=== PATIENT | male | born 2000 | race Caucasian/White ===

== ENCOUNTER 2020-01-14 01:17 | Emergency (ER) | payer OTHER, SELFPAY ==
[2020-01-14 01:19] VITALS: BP 158/109; PULSE 122; RESP 18; TEMP 36.6; O2SAT 99; BMI 31.1
--- NOTE | 2020-01-14 01:21 | ED.RN ---
NO OLD EKGS IN MUES
--- NOTE | 2020-01-14 01:30 | EKG12_ITS ---
Test Reason : CP Blood Pressure : / mmHG Vent. Rate : 117 BPM Atrial Rate : 117 BPM P-R Int : 178 ms QRS Dur : 090 ms QT Int : 296 ms P-R-T Axes : 037 011 006 degrees QTc Int : 412 ms Sinus tachycardia Poor R wave progression Confirmed by SONIDO ETIENNE, SRINIVASA ([id number]), science editor KIRAN REINOSO ([id number]) on 01/15/2020 1:54:30 PM Referred By: RADHA Confirmed By:SRINIVASA HEAD MD
--- NOTE | 2020-01-14 01:31 | ED.VIS.GEN ---
History of Present Illness Chief Complaint: Chest Pain Informant: Patient Narrative: Patient stated for the last 3 weeks he has had intermittent episodes of palpitations. He woke up this evening with fast heart rate. Over the last 3 weeks he is also had near syncope. He has not completely passed out. Sometimes he gets lightheaded and feels like he might when his heart is racing. He is never had this before. Denies any stimulants or illegal drug use. He does drink a few sodas per day. No family history of cardiac disease. Denies any chest pain or shortness of breath. No history of anxiety or panic attacks. They seem to come on out of the blue. Denies any pulmonary embolism dissection or ACS risks Past Medical History - Allergies and Home Meds Allergies/Adverse Reactions: Allergies No Known Allergies Allergy (Verified 01/14/20 01:18) Primary Care Physician: Care Physician,No Primary [Primary Care Provider] - Prior records reviewed: Yes Past Medical History: None Surgical History: no surgical history Lives: With Family Smoking Status: Never smoker Alcohol: None Drugs: None Review of Systems General: Denies: Chills, Fever, Sweats Eyes: Denies: Visual changes - bilaterally, Diplopia ENT: Denies: Rhinorrhea, Sore throat Cardiovascular: Reports: Palpitations, Heart racing. Denies: Chest pain Respiratory: Denies: Dyspnea, Cough, Dyspnea on exertion Gastrointestinal: Denies: Abdominal pain, Nausea, Vomiting, Diarrhea, Melena, Hematochezia Genitourinary: Denies: Dysuria, Hematuria, Frequency Musculoskeletal: Denies: Back pain, Extremity Pain Skin: Denies: Rash, Wounds Neurological: Denies: Headache, Weakness, Numbness Physical Exam Vital Signs/Narrative: Vital Signs Temp Pulse Resp BP Pulse Ox 01/14/20 01:19 98 F 122 H 18 158/109 H 99 General: Well nourished, Well developed, No Acute Distress Head: Normocephalic, Atraumatic Eyes: Perrl, EOMI ENT: Moist mucous membranes, No rhinorrhea Neck: Supple, Nontender Cardiovascular: No murmurs, Normal S1, Normal S2, Tachycardia. Negative for: Regular rate, Regular rhythm Respiratory: No distress, CTA bilaterally, Chest nontender Abdomen: Soft, Nontender, Nondistended, Normal bowel sounds Back: Nontender, Normal Inspection Extremities: Nontender, No edema Skin: Normal color, No rash Neurological: Alert, Oriented x3, Cranial nerves II-XII grossly intact, Normal Strength, Normal Sensation Psychological: Normal affect, Normal Mood Diagnostic/Tx/Re-eval - Medical Decision Making EKG shows sinus tachycardia at 117. No ischemic findings. Lab work obtained. Given IV fluids. Chest x-ray normal. Lab work shows nothing acute. TSH mildly elevated however T3 and T4 normal. Troponin negative. CBC normal. Electrolytes unremarkable including kidney function. On reevaluation the patient resting comfortably. Heart rate around 110. Given a dose of Ativan. At this time I think it is most likely anxiety and panic attacks. Patient will be given a family doctor to follow-up with. He will be given a short course of Ativan for home. I feel he can follow-up as an outpatient. He would also eliminate stimulant drinks ED Disposition - Plan for ED Patient: Disposition: Home or Assisted Living Diagnosis: Sinus tachycardia Instructions: Palpitations Prescriptions: Lorazepam [Ativan] 1 mg PO TID PRN #5 tab PRN Reason: Anxiety Prescription Printed Referrals: James Gleason MD [STAFF PHYSICIAN] -
--- NOTE | 2020-01-14 01:37 | RAD_ITS ---
HISTORY: INTERMITTENT CP AND DYSPNEA X 3 WEEKSWORSE TONIGHT EXAM: XR Chest 2 Views: COMPARISON: None FINDINGS: # of images incl. paperwork: 2 Lungs are clear. Heart is not enlarged. No acute osseous pathology perceived. Pulmonary vascularity is distinct. No effusions. RAD/Chest PA and Lateral IMPRESSION: Normal. at 0217 Reported and signed by: Navarro Verdugo MD Electronically Signed: Navarro Verdugo MD at 2:16 EST Tel , Service support ,
[2020-01-14 01:38] LABS: Absolute Lymphocyte Count 3.41 X10^3/uL (0.83-4.51); Absolute Neutrophil Count 4.2 X10^3/uL (2.0-7.7); Basophil# 0.05 X10^3/uL; Basophil% 0.6 % (0-1); Eosinophil# 0.27 X10^3/uL; Eosinophils% 3.2 % (0-5); Hemoglobin 16.8 g/dL (13.0-16.5); Lymphocyte # 3.41 X10^3/ul (4.0); Lymphocyte % 40.4 % (19-41); Mean Corp Hgb Conc 35.7 g/dL (32-36); Mean Corpuscular Hgb 30.2 pg (27.0-32.0); Mean Corpuscular Volume 84.5 fL (80-94); Mean Platelet Vol. 10.5 fl (6.2-12.0); Monocyte# 0.54 X10^3/uL; Monocyte% 6.4 % (0-10); NRBC Flagged by Analyzer 0 % (0-5); Neutrophil # 4.16 X10^3/uL (2.7-7.7); Neutrophil % 49.2 % (47-70); Platelet Count 304 K/mm3 (150-450); RBC Distribution Width CV 12.4 % (11.6-14.6); Red Blood Count 5.56 M/mm3 (4.6-6.2); White Blood Count 8.5 K/mm3 (4.4-11.0)
[2020-01-14 01:57] LABS: Anion Gap 6 (5-15); BUN 11 mg/dL (7-18); Calcium,Total 9.2 mg/dL (8.5-10.1); Chloride 105 mmol/L (98-107); EST Glomerular Filtration Rate 90 mL/min (>60); Est Glom Filt Rate - Afr Amer 109 mL/min (>60); Estimated Creatinine Clearance 95.86 ml/min; Glucose 167 mg/dL (74-106); Potassium 3.5 mmol/L (3.5-5.1); Sodium Level 139 mmol/L (136-145); Thyroid Stim Hormone (TSH) 5.43 uIU/mL (0.358-3.74)
[2020-01-14] MEDS: 0.9% Normal Saline 1,000 ML 1000 ML IV (02:10)
[2020-01-14 02:17] LABS: T4 Total, Thyroxin 9.2 ug/dL (4.5-12.1)
[2020-01-14 02:28] LABS: T3 Total - Triiodothyronine 0.89 ng/mL (0.6-1.81)
[2020-01-14] MEDS: LORazepam 2 MG/ML Syringe 1 MG IV (02:51)
[2020-01-14 02:53] VITALS: BP 146/90; PULSE 95; RESP 16; O2SAT 98
== END 2020-01-14 03:01 | disposition home or self-care (01) ==
PROVIDERS: Emergency Provider Emergency Medicine
DX: R00.0 Tachycardia, unspecified (principal); F41.0 Panic disorder [episodic paroxysmal anxiety]
CPT/HCPCS: 71046; 80048; 84436; 84443; 84480; 84484; 85025; 93005; 96361; 96374; 99285; J7030; A4216

== ENCOUNTER 2020-01-20 10:07 | Emergency (ER) | payer OTHER, SELFPAY ==
[2020-01-20 10:08] VITALS: BP 151/94; PULSE 94; RESP 18; TEMP 36.4; O2SAT 97; BMI 27.4
--- NOTE | 2020-01-20 10:25 | EKG12_ITS ---
Test Reason : CP Blood Pressure : / mmHG Vent. Rate : 113 BPM Atrial Rate : 113 BPM P-R Int : 160 ms QRS Dur : 082 ms QT Int : 302 ms P-R-T Axes : 017 032 022 degrees QTc Int : 414 ms Sinus tachycardia Low Voltage QRS (Limb Leads) Poor R- wave progression Confirmed by SONIDO ETIENNE, SRINIVASA ([id number]), editorial specialist JARETH THOMSON ([id number]) on 01/22/2020 1:28:14 PM Referred By: CLAUDIA Confirmed By:SRINIVASA HEAD MD
--- NOTE | 2020-01-20 10:27 | RAD_ITS ---
STUDY: X-RAY CHEST REASON FOR EXAM: Male, 19 years old. chest pain and sob TECHNIQUE: Single AP portable view of the chest. COMPARISON: 01/14/2020 FINDINGS: The lungs are clear and expanded. There is no demonstrated pleural abnormality. Normal size heart. Normal mediastinum and los. Normal visualized pulmonary arteries. Normal visualized aortic arch and descending thoracic aorta. Normal visualized thoracic spine. Normal visualized ribs, clavicles, and shoulders. There is no demonstrated abnormality of the visualized soft tissue structures of the upper abdomen. RAD/Chest 1 View (Portable) IMPRESSION: Normal x-ray examination of the chest. Electronically Signed: Blas Samayoa DO at 10:46 EST Tel , Service support ,
[2020-01-20] MEDS: Aspirin 81 MG TAB.CHEW 324 MG PO (10:34)
[2020-01-20 10:48] VITALS: O2SAT 99
[2020-01-20 10:55] LABS: Absolute Lymphocyte Count 1.69 X10^3/uL (0.83-4.51); Absolute Neutrophil Count 4.7 X10^3/uL (2.0-7.7); Basophil# 0.03 X10^3/uL; Basophil% 0.4 % (0-1); Eosinophil# 0.09 X10^3/uL; Eosinophils% 1.3 % (0-5); Hematocrit 47.4 % (40-54); Hemoglobin 16.6 g/dL (13.0-16.5); Lymphocyte # 1.69 X10^3/ul (4.0); Lymphocyte % 24.2 % (19-41); Mean Corpuscular Hgb 29.3 pg (27.0-32.0); Mean Corpuscular Volume 83.6 fL (80-94); Mean Platelet Vol. 10.2 fl (6.2-12.0); Monocyte% 7.2 % (0-10); NRBC Flagged by Analyzer 0 % (0-5); Neutrophil # 4.67 X10^3/uL (2.7-7.7); Neutrophil % 66.8 % (47-70); Platelet Count 288 K/mm3 (150-450); RBC Distribution Width CV 12.7 % (11.6-14.6); RBC Distribution Width SD 38.5 fl (35.1-43.9); Red Blood Count 5.67 M/mm3 (4.6-6.2)
[2020-01-20 11:11] LABS: Anion Gap 5 (5-15); BUN 11 mg/dL (7-18); BUN/Creat Ratio 9.6 RATIO (10-20); Calcium,Total 9.8 mg/dL (8.5-10.1); Chloride 108 mmol/L (98-107); Creatinine, Serum 1.14 mg/dL (0.70-1.30); EST Glomerular Filtration Rate 86 mL/min (>60); Est Glom Filt Rate - Afr Amer 104 mL/min (>60); Glucose 101 mg/dL (74-106); Potassium 3.4 mmol/L (3.5-5.1); Sodium Level 140 mmol/L (136-145)
--- NOTE | 2020-01-20 11:27 | ED.VISSUMM ---
- ER Visit Summary Date of Service: 01/20/20 Chief Complaint: Chest pain History of Present Illness: The patient is a 19 M who presents with chest pain that has been intermittent over the last 3 weeks. Patient states he was getting more frequent. Patient states when the symptoms comes on they last for several hours. Patient states it feels like he has racing in his chest. Patient states this is worse when he is in a quiet environment. Patient admits to some shortness of breath and nausea when he gets the pain and palpitations. Patient admits to some general weakness as well. Patient denies any recent fevers or chills. Patient denies any cough. Physical Examination: Vital signs are stable. Patient is afebrile. Patient is in no acute distress. Oral mucosa is pink and moist. Neck is supple. Trachea is midline. There is no JVD noted. Heart was regular rate and rhythm. Lungs are clear and equal bilaterally. Abdomen is soft. Bowel sounds are normal. There is no tenderness. There is no rebound or guarding noted. Skin is warm dry. Cranial nerves II through XII are intact. There are no focal motor or sensory deficits noted. Extremities are intact. There is no calf tenderness or edema. Test Results: EKG showed sinus tachycardia with a rate of 113. There are no acute ST or T wave changes. CBC, basic metabolic profile, and troponin were obtained were all within normal limits. Portable chest x-ray was obtained. There is no acute cardiopulmonary process. This was interpreted by the radiologist and myself. Emergency Department Course and Treatment: Patient has a HEART score of 1. Patient was advised that this is low risk for acute cardiac event. Patient states that Ativan has helped this in the past. Patient was given a prescription for Vistaril instead of Ativan. Patient was instructed to follow-up with his primary care physician in 5 to 7 days. Patient and spouse understood and were agreeable with the plan. All questions were answered. Disposition: Discharge home Impression: Chest pain This note was generated with [employer] dictation software. It may contain incorrect words, spelling, and punctuation that were not noted in review of the chart prior to signing ED Disposition - Plan for ED Patient: Disposition: Home or Assisted Living Diagnosis: Chest pain Instructions: CHEST PAIN, Uncertain Cause Prescriptions: hydrOXYzine pamoate capsule [Vistaril pamoate capsule] 25 mg PO 4X/DAY PRN PRN #12 cap PRN Reason: Anxiety Prescription Printed Referrals: Care Physician,No Primary [NON-STAFF] - Tiana Virgen MD [STAFF PHYSICIAN] - 5-7 Days
[2020-01-20] MEDS: hydrOXYzine PAM 25 MG Capsule PO (11:49)
[2020-01-20 11:53] VITALS: BP 134/86; PULSE 77; RESP 12; O2SAT 99
== END 2020-01-20 12:16 | disposition home or self-care (01) ==
PROVIDERS: Emergency Provider Emergency Medicine; PCP Nurse Practitioner Family
DX: R07.9 Chest pain, unspecified (principal)
CPT/HCPCS: 71045; 80048; 84484; 85025; 93005; 99285; A4216